=== PATIENT | male | born 1965 | race Caucasian/White ===

== ENCOUNTER → 2016-11-18 | Outpatient (CLI) | payer OTHER ==
--- NOTE | 2016-11-18 08:55 | DIAGNOSTIC IMAGING REPORT ---
THORACIC SPINE 3 VIEWS HISTORY: Pain BACK PAIN COMPARISON: None. FINDINGS: Mild scoliosis. Moderate degenerative disc change. No evidence for compression deformity. IMPRESSION: Mild scoliosis. Moderate degenerative disc change. No acute process. Electronically signed by: Elier Shaver M.D. 11/18/2016 8:54 AM Dictated Date/Time: 11/18/2016 8:52 AM
== END | disposition home or self-care (01) ==
LOC: C.RADBC 08:36
PROVIDERS: ATTEND Nurse Practitioner Family
DX: M54.9 Dorsalgia, unspecified (principal)